=== PATIENT | male | born 1985 | race Caucasian/White ===

== ENCOUNTER 2016-10-19 13:36 | Emergency (ER) | payer SELFPAY ==
[~2016-10-19 13:36] MED LIST: CLEO300C2 PO; DARV PO; LORT5TAB PO; NAPR500 PO; NAPR550 PO; SULF1TAB47 PO
[2016-10-19 14:26] VITALS: BP 123/77; PULSE 65; RESP 14; TEMP 98.1; O2SAT 97
[2016-10-19] MEDS ORDERED: SODIUM CHLOR 0.9% 1000 ML INJ 1,000 ML IV ONE ×2 (14:30→16:45)
[2016-10-19] MEDS ORDERED: NALOXONE HCL 0.4 MG/ML AMP IVP ONE (14:30)
[2016-10-19] MEDS ORDERED: SODIUM CHLORIDE 0.9% FLUSH 5 ML FLUSH IVF PRN (14:30)
[2016-10-19 14:49] VITALS: BP 121/76; PULSE 78; RESP 18; O2SAT 98
--- NOTE | 2016-10-19 15:11 | PD ---
HPI Chief Complaint: OD/ Ingestion Time Seen by Provider: 15:08 Travel History International Travel<30 days: No Contact w/Intl Traveler<30days: No Traveled to known affect area: No History of Present Illness HPI Patient is a 31-year-old male brought into the emergency for evaluation of possible overdose. EMS states that patient could have overdosed on Dilaudid but they are uncertain. PFSH Past Medical History Asthma: Yes Blood Disorders: No Cancer: No Cardiovascular Problems: No Chemotherapy: No Diminished Hearing: No Endocrine: No Gastrointestinal Disorders: Yes GERD: Yes Genitourinary: No Immune Disorder: No Neurologic: No Psychiatric: No Reproductive: No Radiation Therapy: No Seizures: Yes (NOT TAKING DILANTIN) Ulcer: Yes ?: Not Past Surgical History AICD: No Arteriovenous Shunt: No Insulin Pump: No Joint Replacement: No Pacemaker: No Other Surgery: Yes (3 JAW SURGERIES) Social History Alcohol Use: Yes (PT SEEMINGLY ALCOHOLIC) Tobacco Use: Yes (1 PPD) Substance Use: Yes (HEROIN, XANAX, Dilaudid) Allergies-Medications (Allergen,Severity, Reaction): Coded Allergies: No Known Allergies (Unverified , 07/07/14) PT IS TOO DRUNK TO CONFIRM Reported Meds & Prescriptions Reported Meds & Active Scripts Active Nitrofurantoin Monohydrate Macrocrystals (Nitrofurantoin Monoh/Nitrofur Macro) 100 Mg Cap 100 Mg PO BID 7 Days Darvocet-N [id number] Mg 1 Tab PO Q4-6HPRN FOR PAIN Naprosyn (Naproxen) 500 Mg Tab 500 Mg PO BID Bactrim Ds (Trimethoprim/Sulfamethoxazole) Tab 1 Tab PO BID Cleocin (Clindamycin HCl) 300 Mg Cap 1 Tab PO QID Lortab 5/500 (Acetaminophen/Hydrocodone Bitart) 5 Mg/500 Mg Tab 1 Tab PO Q6HPRN PAIN NEEDED FOR PAIN Lortab 5/500 (Acetaminophen/Hydrocodone Bitart) 5 Mg/500 Mg Tab 1 Tab PO Q4- 6HPRN FOR PAIN Anaprox Ds (Naproxen Sodium) 550 Mg Tab 550 Mg PO BIDPRN Review of Systems ROS Limitations: Intoxication Except as stated in HPI: all other systems reviewed are Neg Physical Exam Narrative GENERAL: Well-developed, well-nourished, male. Drowsy, responds to sternal rub. SKIN: Warm and dry. Track iqbal on arms HEAD: Atraumatic. Normocephalic. EYES: Pupils equal and round. No scleral icterus. No injection or drainage. ENT: No nasal bleeding or discharge. Mucous membranes pink and moist. NECK: Trachea midline. No JVD. CARDIOVASCULAR: Regular rate and rhythm. No murmur appreciated. RESPIRATORY: No accessory muscle use. Clear to auscultation. Breath sounds equal bilaterally. GASTROINTESTINAL: Abdomen soft, non-tender, nondistended. Hepatic and splenic margins not palpable. MUSCULOSKELETAL: No obvious deformities. No clubbing. No cyanosis. No edema. NEUROLOGICAL: Drowsy. No obvious cranial nerve deficits. Motor grossly within normal limits. Data Data Last Documented VS Vital Signs Date Time Temp Pulse Resp B/P Pulse Ox O2 Delivery O2 Flow Rate FiO2 10/19/16 16:15 64 18 112/75 99 Room Air 10/19/16 14:26 98.1 Orders Electrocardiogram (10/19/16 14:30) Alcohol (Ethanol) (10/19/16 14:30) Complete Blood Count With Diff (10/19/16 14:30) Comprehensive Metabolic Panel (10/19/16 14:30) Drug Screen, Random Urine (10/19/16 14:30) Prothrombin Time / Inr (Pt) (10/19/16 14:30) Act Partial Throm Time (Ptt) (10/19/16 14:30) Salicylates (Aspirin) (10/19/16 14:30) Tylenol (Acetaminophen) (10/19/16 14:30) Urinalysis - C+S If Indicated (10/19/16 14:30) Blood Glucose (10/19/16 14:30) Iv Access Insert/Monitor (10/19/16 14:30) Ecg Monitoring (10/19/16 14:30) Oximetry (10/19/16 14:30) Naloxone Inj (Narcan Inj) (10/19/16 14:30) Sodium Chloride 0.9% Flush (Ns Flush) (10/19/16 14:30) Sodium Chlor 0.9% 1000 Ml Inj (Ns 1000 M (10/19/16 14:30) Lactic Acid (10/19/16 15:04) Ct Brain W/O Iv Contrast(Rout) (10/19/16 ) Sodium Chlor 0.9% 1000 Ml Inj (Ns 1000 M (10/19/16 16:45) Urine Culture (10/19/16 17:45) Nitrofurantoin Monohyd Macrocr (Macrobid (10/19/16 18:30) Labs Laboratory Tests Test 10/19/16 10/19/16 10/19/16 14:45 15:10 17:45 White Blood Count 8.8 TH/MM3 Red Blood Count 4.88 MIL/MM3 Hemoglobin 13.2 GM/DL Hematocrit 40.5 % Mean Corpuscular Volume 83.1 FL Mean Corpuscular Hemoglobin 27.1 PG Mean Corpuscular Hemoglobin 32.6 % Concent Red Cell Distribution Width 14.5 % Platelet Count 319 TH/MM3 Mean Platelet Volume 7.2 FL Neutrophils (%) (Auto) 56.3 % Lymphocytes (%) (Auto) 29.2 % Monocytes (%) (Auto) 10.7 % Eosinophils (%) (Auto) 3.1 % Basophils (%) (Auto) 0.7 % Neutrophils # (Auto) 4.9 TH/MM3 Lymphocytes # (Auto) 2.6 TH/MM3 Monocytes # (Auto) 0.9 TH/MM3 Eosinophils # (Auto) 0.3 TH/MM3 Basophils # (Auto) 0.1 TH/MM3 CBC Comment DIFF FINAL Differential Comment Prothrombin Time 9.9 SEC Prothromb Time International 0.9 RATIO Ratio Activated Partial 28.7 SEC Thromboplast Time Sodium Level 140 MEQ/L Potassium Level 3.5 MEQ/L Chloride Level 106 MEQ/L Carbon Dioxide Level 29.8 MEQ/L Anion Gap 4 MEQ/L Blood Urea Nitrogen 9 MG/DL Creatinine 0.87 MG/DL Estimat Glomerular Filtration 102 ML/MIN Rate Random Glucose 81 MG/DL Calcium Level 8.6 MG/DL Total Bilirubin 0.3 MG/DL Aspartate Amino Transf 22 U/L (AST/SGOT) Alanine Aminotransferase 30 U/L (ALT/SGPT) Alkaline Phosphatase 83 U/L Total Protein 7.1 GM/DL Albumin 3.4 GM/DL Salicylates Level 1.9 MG/DL Acetaminophen Level LESS THAN 2.0 MCG/ML Ethyl Alcohol Level LESS THAN 3 MG/DL Lactic Acid Level 0.5 mmol/L Urine Color YELLOW Urine Turbidity CLEAR Urine pH 6.0 Urine Specific [place] 1.016 Urine Protein NEG mg/dL Urine Glucose (UA) NEG mg/dL Urine Ketones NEG mg/dL Urine Occult Blood NEG Urine Nitrite POS Urine Bilirubin NEG Urine Urobilinogen LESS THAN 2.0 MG/DL Urine Leukocyte Esterase MOD Urine RBC 2 /hpf Urine WBC 42 /hpf Urine Mucus FEW /lpf Microscopic Urinalysis Comment CULTURE INDICATED Urine Opiates Screen NEG Urine Barbiturates Screen NEG Urine Amphetamines Screen POS Urine Benzodiazepines Screen POS Urine Cocaine Screen POS Urine Cannabinoids Screen POS MDM Medical Decision Making Medical Screen Exam Complete: Yes Emergency Medical Condition: Yes Interpretation(s) Last Impressions Head CT 10/19/16 0000 Signed Impressions: Service Date/Time: Wednesday, October 19, 2016 16:19 - CONCLUSION: Normal examination for a patient of this age. Jaime Mancera MD Vital Signs Date Time Temp Pulse Resp B/P Pulse Ox O2 Delivery O2 Flow Rate FiO2 10/19/16 14:49 78 18 121/76 98 Room Air 10/19/16 14:49 78 18 121/76 98 Room Air 10/19/16 14:26 98.1 65 14 123/77 97 Differential Diagnosis Intentional overdose versus unintentional overdose versus substance abuse versus CVA versus embolism versus other Narrative Course Patient is a 31-year-old male who was brought into emergency department for evaluation of possible overdose. Upon initial assessment, patient was arousable only with sternal rub and then would only keep his eyes open for a few seconds. 0.4 mg of IV Narcan was given after IV access was obtained. Patient is more alert, stating that he took Adderall, heroin, possible Dilaudid. Patient reports a history of IV drug use. He denies any physical complaints at this time. Labs ordered and pending. CBC is unremarkable, chemistries unremarkable, lactic acid is normal, coags are normal. Salicylates, acetaminophen, alcohol level were unremarkable. Patient's vital signs remained stable. He is more alert now. He was able to ambulate to the bathroom without difficulty. He reports taking oral Valium and injecting 4 mg of Dilaudid. He denies any suicidal or homicidal ideations. He states that he injected to get high and did not intend overdose. He has received a total of 2 L of IV fluids. Urine drug screen was positive for benzodiazepines, cocaine and marijuana, amphetamines. Urinalysis shows a nitrite positive urinary tract infection. Patient will receive first dose of nitrofurantoin emergency department. He is encouraged to maintain adequate fluid intake, avoid IV drug use, follow-up with his primary doctor. He is encouraged to return to emergency department for any new or worsening symptoms. He is further encouraged to follow-up with the [facility] for rehabilitation. Patient verbalized understanding of these instructions. Patient is stable for discharge. Physician Communication Physician Communication Dr. Lobato Diagnosis Primary Impression: Overdose Qualified Code: T50.901A - Overdose, accidental or unintentional, initial encounter Additional Impressions: Urinary tract infection Qualified Code: N39.0 - Urinary tract infection without hematuria, site unspecified Substance abuse Referrals: [facility] Patient Instructions: Adult Overdose (ED), Benzodiazepine Overdose (ED), General Instructions, Urinary Tract Infection in Men (ED) Additional Instructions: Follow-up with the [facility] Follow-up with [facility] Avoid IV drug use Increased fluid intake Complete full course of antibiotics as prescribed Return to emergency department for any new or worsening symptoms Med/Other Pt SpecificInfo: Prescription(s) given Scripts Nitrofurantoin Monohydrate Macrocrystals 100 Mg [id number] Mg PO BID 7 Days Ref 0 Prov:Sofie Fine 10/19/16 Disposition: 01 DISCHARGE HOME Condition: Stable Sofie Fine Oct 19, 2016 15:11
[2016-10-19 15:13] LABS: AUTOMATED NEUTROPHIL # 4.9 TH/MM3 (1.8-7.7); BASOPHIL # 0.1 TH/MM3 (0-0.2); BASOPHIL % 0.7 % (0.0-2.0); EOSINOPHIL # 0.3 TH/MM3 (0-0.4); EOSINOPHIL % 3.1 % (0.0-4.0); HEMATOCRIT 40.5 % (39.0-51.0); HEMO FLAGS DIFF FINAL; LYMPH % 29.2 % (9.0-44.0); LYMPHOCYTE # 2.6 TH/MM3 (1.0-4.8); MEAN CELL VOLUME 83.1 FL (80.0-100.0); MEAN CORPUSCULAR HEMOGLOBIN 27.1 PG (27.0-34.0); MEAN CORPUSCULAR HGB CONC 32.6 % (32.0-36.0); MONO % 10.7 % (0.0-8.0); NEUT % 56.3 % (16.0-70.0); PLATELET COUNT 319 TH/MM3 (150-450); RED BLOOD COUNT 4.88 MIL/MM3 (4.50-5.90); RED CELL DISTRIBUTION WIDTH 14.5 % (11.6-17.2); WHITE BLOOD COUNT 8.8 TH/MM3 (4.0-11.0)
[2016-10-19 15:33] LABS: APTT (PATIENT) 28.7 SEC (24.3-30.1); INTERNATIONAL NORMALIZED RATIO 0.9 RATIO; PROTHROMBIN TIME - PATIENT 9.9 SEC (9.8-11.6)
[2016-10-19 15:34] LABS: ALT (GPT) 30 U/L (12-78); ANION GAP 4 MEQ/L (5-15); AST (GOT) 22 U/L (15-37); BICARBONATE 29.8 MEQ/L (21.0-32.0); BLOOD UREA NITROGEN 9 MG/DL (7-18); CHLORIDE 106 MEQ/L (98-107); GLOMERULAR FILTRATION RATE 102 ML/MIN (>89); POTASSIUM 3.5 MEQ/L (3.5-5.1); SODIUM (NA) 140 MEQ/L (136-145)
[2016-10-19 15:36] LABS: ALKALINE PHOSPHATASE 83 U/L (45-117); TOTAL BILIRUBIN ADULT 0.3 MG/DL (0.2-1.0)
[2016-10-19 15:55] LABS: ACETAMINOPHEN LESS THAN 2.0 MCG/ML (10.0-30.0)
[2016-10-19 16:15] VITALS: BP 112/75; PULSE 64; RESP 18; O2SAT 99
--- NOTE | 2016-10-19 16:34 | RADRPT ---
EXAM DATE/TIME: 10/19/2016 16:19 [facility] COMPARISON: No previous studies available for comparison. INDICATIONS : Possible overdose and seizure; unknown head trauma. RADIATION DOSE: 46.68 CTDIvol (mGy) MEDICAL HISTORY : Seizures. SURGICAL HISTORY : Jaw surgery. ENCOUNTER: Initial ACUITY: 1 day PAIN SCALE: Non-responsive LOCATION: cranial TECHNIQUE: Multiple contiguous axial images were obtained of the head. Using automated exposure control and adj ustment of the mA and/or kV according to patient size, radiation dose was kept as low as reasonably a chievable to obtain optimal diagnostic quality images. FINDINGS: CEREBRUM: The ventricles are normal for age. No evidence of midline shift, mass lesion, hemorrhage or acute in farction. No extra-axial fluid collections are seen. POSTERIOR FOSSA: The cerebellum and brainstem are intact. The 4th ventricle is midline. The cerebellopontine angle i s unremarkable. EXTRACRANIAL: The visualized portion of the orbits is intact. SKULL: The calvaria is intact. No evidence of skull fracture. CONCLUSION: Normal examination for a patient of this age. Jaime Mancera MD on October 19, 2016 at 16:28 Board Certified Radiologist. This report was verified electronically.
[2016-10-19 18:09] LABS: BLOOD, URINE NEG (NEG); COMMENT (UR) CULTURE INDICATED; CULTURE IF INDICATED CULTURE INDICATED; GLUCOSE,URINE NEG (NEG); KETONE, URINE NEG (NEG); MUCUS URINE FEW /lpf (OCC); URINE COLOR YELLOW (YELLW/STRAW)
[2016-10-19 18:12] LABS: AMPHETAMINE, URINE POS (NEG); BARBITURATES, URINE NEG (NEG); COCAINE, URINE POS (NEG)
[2016-10-19 18:18] LABS: NITRITE,URINE POS (NEG)
[2016-10-19] MEDS ORDERED: NITR100C4 PO ×2 (18:25→18:26)
[2016-10-19] MEDS ORDERED: NITROFURANTOIN MONOHYD MACROCR 100 MG CAP PO ONE (18:30)
[2016-10-19 18:56] VITALS: BP 119/67
--- NOTE | 2016-10-20 21:18 | EKG ---
Date Performed: 10/19/2016 Time Performed: 13:57:51 PTAGE: 31 years EKG: Sinus rhythm NORMAL ECG PREVIOUS TRACING : 02/14/2016 01.15 DOCTOR: Alex Lewis Interpretating Date/Time 10/20/2016 21:09:15
== END 2016-10-19 18:57 | disposition home or self-care (01) ==
LOC: NEDAMB 13:36
DX: T50.901A Poisoning by unspecified drugs, medicaments and biological substances, accidental (unintentional), initial encounter (principal); N39.0 Urinary tract infection, site not specified; F19.10 Other psychoactive substance abuse, uncomplicated; B95.61 Methicillin susceptible Staphylococcus aureus infection as the cause of diseases classified elsewhere; F17.200 Nicotine dependence, unspecified, uncomplicated; Z87.09 Personal history of other diseases of the respiratory system; Z87.19 Personal history of other diseases of the digestive system; Z86.69 Personal history of other diseases of the nervous system and sense organs
CPT/HCPCS: 70450; 80053; 80307; 80329; 81001; 83605; 85025; 85610; 85730; 86403; 87086; 87186; 93005; 96361; 96374; 99284; J2310; J7030; 80320; G0480

== ENCOUNTER 2016-12-26 15:02 | Emergency (ER) | payer SELFPAY ==
[~2016-12-26] VITALS: Ht 175.3 cm; Wt 75.0 kg
[~2016-12-26 15:02] MED LIST changes: +NITR100C4 PO
[2016-12-26 18:25] VITALS: BP 131/93; PULSE 90; RESP 20; TEMP 97.4; O2SAT 100
--- NOTE | 2016-12-26 18:46 | PD ---
HPI Chief Complaint: Syncope/Near-Syncope Time Seen by Provider: 18:38 Travel History International Travel<30 days: No Contact w/Intl Traveler<30days: No Traveled to known affect area: No History of Present Illness HPI 31-year-old male presents for evaluation. He reports that 2 days ago he was walking through a park in the next thing he knows he woke up in a ditch. He does note he had a syncopal event or seizure. There is no tongue biting or incontinence. He has had seizure occasionally in the past. He reports that ever since the event he has had severe lower back pain which is aching and constant and worse with movement. He also reports that he had numbness and tingling in his whole right leg which has resolved but now he has significant pain in his left foot and ankle. Pain is constant and worse when attempting to ambulate. He denies any bowel or bladder incontinence, saddle anesthesia, fevers or chills, abdominal pain, headache, chest pain, shortness of breath. He does have a history of IV drug abuse, most recently injected meth in his right arm 3 weeks ago. He has been seen here multiple times in the past for overdose and polysubstance abuse issues. No history of epidural abscess or discitis. No other complaints. PFSH Past Medical History Asthma: Yes Blood Disorders: No Cancer: No Cardiovascular Problems: No Chemotherapy: No Diminished Hearing: No Endocrine: No Gastrointestinal Disorders: Yes GERD: Yes Genitourinary: No Immune Disorder: No Neurologic: No Psychiatric: No Reproductive: No Radiation Therapy: No Seizures: Yes (NOT TAKING DILANTIN) Ulcer: Yes Past Surgical History AICD: No Arteriovenous Shunt: No Insulin Pump: No Joint Replacement: No Pacemaker: No Other Surgery: Yes (3 JAW SURGERIES) Social History Alcohol Use: Yes (PT SEEMINGLY ALCOHOLIC) Tobacco Use: Yes (1 PPD) Substance Use: Yes (HEROIN, XANAX, Dilaudid) Allergies-Medications (Allergen,Severity, Reaction): Coded Allergies: No Known Allergies (Unverified , 12/26/16) PT IS TOO DRUNK TO CONFIRM Reported Meds & Prescriptions Reported Meds & Active Scripts Active Flexeril (Cyclobenzaprine HCl) 10 Mg Tab 10 Mg PO TID Ibuprofen 600 Mg Tab 600 Mg PO Q6H PRN Review of Systems Except as stated in HPI: all other systems reviewed are Neg Physical Exam Narrative GENERAL: Somewhat disheveled-appearing male who is in no acute distress. SKIN: Warm and dry. Tract iqbal noted on the right arm. HEAD: Atraumatic. Normocephalic. EYES: Pupils equal and round. No scleral icterus. No injection or drainage. ENT: No nasal bleeding or discharge. Mucous membranes pink and moist. NECK: Trachea midline. No JVD. CARDIOVASCULAR: Regular rate and rhythm. No murmur appreciated. RESPIRATORY: No accessory muscle use. Clear to auscultation. Breath sounds equal bilaterally. GASTROINTESTINAL: Abdomen soft, non-tender, nondistended. Hepatic and splenic margins not palpable. MUSCULOSKELETAL: No obvious deformities. Tender to palpation lower back paravertebral musculature. There is tenderness to palpation to the anterior left ankle and proximal left foot. There is pain with dorsi and plantar flexion of the ankle. There is no lower extremity edema. 2+ dorsalis pedis and posterior tibial pulses bilaterally. NEUROLOGICAL: Awake and alert. No obvious cranial nerve deficits. Motor grossly within normal limits. Normal speech. Data Data Last Documented VS Vital Signs Date Time Temp Pulse Resp B/P Pulse Ox O2 Delivery O2 Flow Rate FiO2 12/26/16 22:40 81 16 141/91 98 Room Air 12/26/16 18:25 97.4 Orders Electrocardiogram (12/26/16 18:42) Basic Metabolic Panel (Bmp) (12/26/16 18:42) Complete Blood Count With Diff (12/26/16 18:42) Magnesium (Mg) (12/26/16 18:42) Act Partial Throm Time (Ptt) (12/26/16 18:42) Prothrombin Time / Inr (Pt) (12/26/16 18:42) Ankle, Complete ([id number]) (12/26/16 ) Foot, Complete ([id number]) (12/26/16 ) Hydromorphone Pf Inj (Dilaudid Pf Inj) (12/26/16 23:30) Mri T Spine W & W/O Contrast (12/27/16 ) Mri L Spine W&W/O Contrast (12/27/16 ) Gadodiamide Pf Inj (Omniscan Pf Inj) (12/27/16 01:31) Labs Laboratory Tests Test 12/26/16 18:50 White Blood Count 8.0 TH/MM3 Red Blood Count 5.08 MIL/MM3 Hemoglobin 13.8 GM/DL Hematocrit 42.1 % Mean Corpuscular Volume 82.9 FL Mean Corpuscular Hemoglobin 27.1 PG Mean Corpuscular Hemoglobin 32.7 % Concent Red Cell Distribution Width 14.7 % Platelet Count 361 TH/MM3 Mean Platelet Volume 7.6 FL Neutrophils (%) (Auto) 58.9 % Lymphocytes (%) (Auto) 26.8 % Monocytes (%) (Auto) 12.9 % Eosinophils (%) (Auto) 0.8 % Basophils (%) (Auto) 0.6 % Neutrophils # (Auto) 4.7 TH/MM3 Lymphocytes # (Auto) 2.1 TH/MM3 Monocytes # (Auto) 1.0 TH/MM3 Eosinophils # (Auto) 0.1 TH/MM3 Basophils # (Auto) 0.0 TH/MM3 CBC Comment DIFF FINAL Differential Comment Prothrombin Time 10.5 SEC Prothromb Time International 1.0 RATIO Ratio Activated Partial 26.7 SEC Thromboplast Time Sodium Level 139 MEQ/L Potassium Level 3.5 MEQ/L Chloride Level 102 MEQ/L Carbon Dioxide Level 27.4 MEQ/L Anion Gap 10 MEQ/L Blood Urea Nitrogen 8 MG/DL Creatinine 0.94 MG/DL Estimat Glomerular Filtration 93 ML/MIN Rate Random Glucose 84 MG/DL Calcium Level 9.1 MG/DL Magnesium Level 2.1 MG/DL [facility] Medical Decision Making Medical Screen Exam Complete: Yes Emergency Medical Condition: Yes Medical Record Reviewed: Yes Differential Diagnosis Muscle strain, ankle sprain, contusion, fracture, epidural abscess, osteomyelitis, discitis Narrative Course 31-year-old male with history of IV drug abuse presents with severe lower back pain and left ankle and foot pain ever since a questionable syncope versus seizure event 2 days ago in which he woke up in a ditch. The patient was initially seen in triage where lab work, x-ray imaging of the left ankle and foot, lumbar spine MRI with contrast has been ordered. The patient will be moved to a medical bed when one becomes available. for logistical purposes in the triage area we are not placing an IV in this patient and therefore the MRI with contrast has been canceled. The decision as to whether or not this patient requires an MRI with contrast will be made by the provider in the main ED. Scripts Cyclobenzaprine (Flexeril)10 Mg Tab10 Mg PO TID #15 TAB Ref 0 Prov:Gershen,Therese B MD 12/27/16 Ibuprofen 600 Mg [id number] Mg PO Q6H PRN (PAIN 1 TO 10 AND/OR AGITATION) #20 TAB Ref 0 Prov:Therese Landa MD 12/27/16 Kirill Girard Dec 26, 2016 18:46 Kirill Girard Dec 26, 2016 18:46
--- NOTE | 2016-12-26 19:12 | RADRPT ---
EXAM DATE/TIME: 12/26/2016 18:59 [facility] COMPARISON: No previous studies available for comparison. INDICATIONS : Left foot pain from unknown injury. MEDICAL HISTORY : None. SURGICAL HISTORY : None. ENCOUNTER: Initial ACUITY: 1 day PAIN SCORE: 6/10 LOCATION: Left foot. FINDINGS: Three view examination of the left foot demonstrates no soft tissue swelling, dislocation, or fractur e. The tarsal bones appear intact. The interphalangeal and metatarsophalangeal joints are intact. The calcaneus is intact. Bony mineralization is normal. CONCLUSION: No acute disease. Ambrose Amezquita MD on December 26, 2016 at 19:09 Board Certified Radiologist. This report was verified electronically.
--- NOTE | 2016-12-26 19:12 | RADRPT ---
EXAM DATE/TIME: 12/26/2016 19:02 [facility] COMPARISON: No previous studies available for comparison. INDICATIONS : Left ankle pain from unknown injury. MEDICAL HISTORY : None. SURGICAL HISTORY : None. ENCOUNTER: Initial ACUITY: 1 day PAIN SCORE: 6/10 LOCATION: Left ankle. FINDINGS: Three view exam was performed of the left ankle. The bony structures are in normal alignment. No ev idence of fracture, dislocation, or soft tissue swelling. The ankle mortise is intact. No radiopaqu e foreign bodies are seen. Bony mineralization is normal. CONCLUSION: No acute disease. Ambrose Amezquita MD on December 26, 2016 at 19:11 Board Certified Radiologist. This report was verified electronically.
[2016-12-26 19:15] LABS: AUTOMATED NEUTROPHIL # 4.7 TH/MM3 (1.8-7.7); BASOPHIL % 0.6 % (0.0-2.0); EOSINOPHIL # 0.1 TH/MM3 (0-0.4); EOSINOPHIL % 0.8 % (0.0-4.0); HEMATOCRIT 42.1 % (39.0-51.0); HEMO FLAGS DIFF FINAL; LYMPH % 26.8 % (9.0-44.0); LYMPHOCYTE # 2.1 TH/MM3 (1.0-4.8); MEAN CELL VOLUME 82.9 FL (80.0-100.0); MEAN CORPUSCULAR HEMOGLOBIN 27.1 PG (27.0-34.0); MEAN CORPUSCULAR HGB CONC 32.7 % (32.0-36.0); MONO % 12.9 % (0.0-8.0); NEUT % 58.9 % (16.0-70.0); PLATELET COUNT 361 TH/MM3 (150-450); RED BLOOD COUNT 5.08 MIL/MM3 (4.50-5.90); RED CELL DISTRIBUTION WIDTH 14.7 % (11.6-17.2)
[2016-12-26 19:24] LABS: APTT (PATIENT) 26.7 SEC (24.3-30.1); PROTHROMBIN TIME - PATIENT 10.5 SEC (9.8-11.6)
[2016-12-26 19:33] LABS: BICARBONATE 27.4 MEQ/L (21.0-32.0); MAGNESIUM 2.1 MG/DL (1.5-2.5); POTASSIUM 3.5 MEQ/L (3.5-5.1)
[2016-12-26 22:40] VITALS: BP 141/91; PULSE 81; RESP 16; O2SAT 98
[2016-12-26] MEDS ORDERED: HYDROmorphone HCL PF 1 MG/ML VIAL IV PUSH ONE (23:30)
[2016-12-27] MEDS ORDERED: GADODIAMIDE PF 287 MG/ML 5 ML VIAL (for RAD MRI) IV PUSH ONE (01:31)
--- NOTE | 2016-12-27 01:42 | RADRPT ---
EXAM DATE/TIME: 12/27/2016 00:19 [facility] COMPARISON: No previous studies available for comparison. INDICATIONS : Abscess. Pain. CONTRAST: 15 cc Omniscan (gadodiamide) IV MEDICAL HISTORY : Seizures. Hep C, Asthma. SURGICAL HISTORY : Left elbow surgery, Jaw surgery. ENCOUNTER: Initial ACUITY: 2 day PAIN SCORE: 10/10 LOCATION: Bilateral lower back region. TECHNIQUE: Multiplanar multisequence MRI of the lumbar spine was performed with and without contrast. FINDINGS: The most caudal appearing lumbar vertebra is numbered as L5. VERTEBRAE: Homogeneous signal. Normal alignment. CONUS: Normal level and configuration. POST CONTRAST: No abnormal areas of contrast enhancement are seen. T12-L1: The thecal sac has a normal diameter. No evidence of disc bulge or protrusion. The neural foramina are patent bilaterally. L1-L2: The thecal sac has a normal diameter. No evidence of disc bulge or protrusion. The neural foramina are patent bilaterally. L2-L3: The thecal sac has a normal diameter. No evidence of disc bulge or protrusion. The neural foramina are patent bilaterally. L3-L4: The thecal sac has a normal diameter. No evidence of disc bulge or protrusion. The neural foramina are patent bilaterally. L4-L5: The thecal sac has a normal diameter. No evidence of disc bulge or protrusion. The neural foramina are patent bilaterally. L5-S1: The thecal sac has a normal diameter. No evidence of disc bulge or protrusion. The neural foramina are patent bilaterally. CONCLUSION: Normal examination. Garrison Jimenes MD on December 27, 2016 at 1:33 Board Certified Radiologist. This report was verified electronically.
--- NOTE | 2016-12-27 01:47 | RADRPT ---
EXAM DATE/TIME: 12/27/2016 00:19 [facility] COMPARISON: No previous studies available for comparison. INDICATIONS : Abscess. Pain. CONTRAST: 15 cc Omniscan (gadodiamide) IV MEDICAL HISTORY : Seizures. Asthma, Hep C, IVDO SURGICAL HISTORY : Left elbow surgery, Jaw surgery. ENCOUNTER: Initial ACUITY: 2 day PAIN SCORE: 10/10 LOCATION: Bilateral lower back region. TECHNIQUE: Multiplanar multisequence MRI of the thoracic spine was performed. FINDINGS: VERTEBRA: Normal vertebral body height. Homogeneous marrow signal. ALIGNMENT: Normal. CORD: Normal position and configuration. POST CONTRAST: No abnormal areas of contrast enhancement seen. T1-T2: Normal. T2-T3: The thecal sac has a normal diameter. No evidence of disc bulge or protrusion. T3-T4: The thecal sac has a normal diameter. No evidence of disc bulge or protrusion. T4-T5: The thecal sac has a normal diameter. No evidence of disc bulge or protrusion. T5-T6: The thecal sac has a normal diameter. No evidence of disc bulge or protrusion. T6-T7: The thecal sac has a normal diameter. No evidence of disc bulge or protrusion. T7-T8: The thecal sac has a normal diameter. No evidence of disc bulge or protrusion. T8-T9: The thecal sac has a normal diameter. No evidence of disc bulge or protrusion. T9-T10: The thecal sac has a normal diameter. No evidence of disc bulge or protrusion. T10-T11: The thecal sac has a normal diameter. No evidence of disc bulge or protrusion. T11-T12: The thecal sac has a normal diameter. No evidence of disc bulge or protrusion. T12-L1: The thecal sac has a normal diameter. No evidence of disc bulge or protrusion. CONCLUSION: Normal examination for a patient of this age. Garrison Jimenes MD on December 27, 2016 at 1:41 Board Certified Radiologist. This report was verified electronically.
[2016-12-27] MEDS ORDERED: IBUP-232 PO (02:13)
[2016-12-27] MEDS ORDERED: CYCL1TAB29 PO (02:13)
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
== END 2016-12-27 04:14 | disposition home or self-care (01) ==
LOC: NETRI 15:02 → NEPE 12-27 04:14
DX: M54.9 Dorsalgia, unspecified (principal); F11.20 Opioid dependence, uncomplicated; F19.20 Other psychoactive substance dependence, uncomplicated
CPT/HCPCS: 72157; 72158; 73610; 73630; 80048; 83735; 85025; 85610; 85730; 96374; 99284; A9579; J1170

== ENCOUNTER 2017-08-07 09:11 | Emergency (ER) | payer SELFPAY ==
[~2017-08-07] VITALS: Ht 177.8 cm; Wt 75.0 kg
[~2017-08-07 09:11] MED LIST changes: -CLEO300C2 PO; +CYCL10TA PO; -DARV PO; +IBUP-232 PO; -LORT5TAB PO; -NAPR500 PO; -NAPR550 PO; -NITR100C4 PO; -SULF1TAB47 PO
[2017-08-07 09:12] VITALS: BP 127/76; PULSE 101; RESP 26; TEMP 97.5; O2SAT 100
[2017-08-07] MEDS ORDERED: ACETAMINOPHEN/HYDROcodone 325 MG/5 MG TAB PO ONE (11:00)
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
== END 2017-08-07 12:22 | disposition home or self-care (01) ==
LOC: NEPD 09:11
DX: S00.03XA Contusion of scalp, initial encounter (principal); S70.02XA Contusion of left hip, initial encounter; S80.02XA Contusion of left knee, initial encounter; Y04.0XXA Assault by unarmed brawl or fight, initial encounter
CPT/HCPCS: 70450; 73502; 73564; 99284